=== PATIENT | female | born 1990 | race African-American/Black ===

== ENCOUNTER 2024-01-24 13:59 | Emergency (ER) | payer BC, MEDICAID ==
[~2024-01-24] VITALS: Ht 172.7 cm; Wt 95.0 kg
[2024-01-24 14:07] VITALS: O2SAT 100
[2024-01-24 15:13] LABS: BASOPHILS % 0.2 % (0.0-2.0); DIFFERENTIAL COMMENT 0; EOSINOPHILS % 0.3 % (0.0-5.0); HEMATOCRIT. 35.6 % (36.0-48.0); HEMOGLOBIN. 11.4 g/dL (12.0-16.0); LYMPHOCYTES % 14.8 % (20.0-50.0); MEAN CORPUSCULAR HEMOGLOBIN 24.6 pg (28.0-32.0); MEAN CORPUSCULAR VOLUME 76.8 fL (81.0-99.0); MEAN PLATELET VOLUME 10.2 fl (7.4-10.4); MONOCYTES % 4.7 % (2.0-8.0); PLATELET 270 x1000/uL (130-400); RED BLOOD CELL COUNT 4.64 mill/uL (4.2-5.4); RED CELL DISTRIBUTION WIDTH 14.9 % (11.6-14.6); WHITE BLOOD COUNT 9.4 x1000/uL (4.5-11.0)
[2024-01-24 15:25] LABS: PROTHROMBIN TIME 10.7 sec (9.6-11.0)
[2024-01-24 15:42] LABS: CHLORIDE 101 mEq/L (98-107); POTASSIUM 3.6 mEq/L (3.5-5.1); SODIUM 135 mEq/L (136-145)
[2024-01-24 15:43] LABS: CALCIUM 9.3 mg/dL (8.7-10.4); CARBON DIOXIDE 25 mEq/L (21-32)
[2024-01-24] MEDS: DIPHENHYDRAMINE 50MG/ML VIAL IV ONE (15:43)
[2024-01-24] MEDS: METOCLOPRAMIDE HCL 10MG/2ML VIAL IV STA (15:43)
[2024-01-24] MEDS: SODIUM CHLORIDE 0.9% 1,000 ML IV ONE (15:44)
[2024-01-24 15:48] LABS: CREATININE 0.7 mg/dL (0.6-1.0); GLUCOSE 94 mg/dL (70-105); UREA NITROGEN BLOOD 6 mg/dL (9-23)
[2024-01-24 15:49] LABS: HCG SCREEN POSITIVE
[2024-01-24] MEDS ORDERED: DOXY1TAB3 MT (15:58)
[2024-01-24 17:10] VITALS: BP 117/63; PULSE 68; RESP 16; TEMP 98.5
== END 2024-01-24 17:12 | disposition home or self-care (01) ==
LOC: ER 15:00
DX: O26.891 Other specified pregnancy related conditions, first trimester (principal); R11.2 Nausea with vomiting, unspecified; Z3A.13 13 weeks gestation of pregnancy
CPT/HCPCS: 99284; 96374; 96361; 96375; 80048; 84703; 83690; 85025; 85610; 36415; J1200; J2765; J7030

== ENCOUNTER 2024-07-05 11:25 | Emergency (ER) | payer BC, OTHER ==
[~2024-07-05] VITALS: Ht 172.7 cm; Wt 90.7 kg
[~2024-07-05 11:25] MED LIST: DOXY1TAB3 MT
[2024-07-05 11:28] VITALS: BP 113/71; PULSE 98; RESP 16; TEMP 98.2; O2SAT 100
[2024-07-05] MEDS: TETRACAINE 0.5% OPHTH DROPS 4ML BOTHEYE ONE (13:38)
[2024-07-05] MEDS: FLUORESCEIN SODIUM 1MG/STRIP BOTHEYE ONE (13:38)
[2024-07-05] MEDS ORDERED: ERYT1OIN6 EACHEYE (15:08)
== END 2024-07-05 15:30 | disposition home or self-care (01) ==
LOC: ER 11:25
DX: H10.31 Unspecified acute conjunctivitis, right eye (principal); F12.10 Cannabis abuse, uncomplicated
CPT/HCPCS: 99283

== ENCOUNTER 2024-10-14 05:41 | Emergency (ER) | payer MEDICAID, OTHER ==
[~2024-10-14] VITALS: Ht 172.7 cm; Wt 77.0 kg
[~2024-10-14 05:41] MED LIST changes: +ERYT1OIN6 EACHEYE
[2024-10-14 05:43] VITALS: TEMP 36.7; O2SAT 100
[2024-10-14] MEDS: ACETAMINOPHEN 325MG TABLET PO ONE (06:39)
[2024-10-14] MEDS: ONDANSETRON HCL 4MG/2ML INJ IV STA (06:40)
[2024-10-14] MEDS: MAGNESIUM/ALUMINUM HYDROXIDE/SIMETHICONE 30ML UDC PO STA (06:40)
[2024-10-14] MEDS: SODIUM CHLORIDE 0.9% 1,000 ML IV ONE (06:40)
[2024-10-14] MEDS: VISCOUS LIDOCAINE 2% 15 ML UDC PO STA (07:15)
[2024-10-14 07:44] LABS: CHLORIDE 106 mEq/L (98-107); POTASSIUM 3.3 mEq/L (3.5-5.1); SODIUM 140 mEq/L (136-145)
[2024-10-14 07:45] LABS: CALCIUM 9.5 mg/dL (8.7-10.4); CARBON DIOXIDE 26 mEq/L (21-32)
[2024-10-14 07:50] LABS: CREATININE 0.8 mg/dL (0.6-1.0); GLUCOSE 100 mg/dL (70-105); UREA NITROGEN BLOOD 10 mg/dL (9-23)
[2024-10-14 07:52] LABS: ALANINE AMINOTRANSFERASE 11 IU/L (10-49); ALBUMIN 4.7 g/dL (3.2-4.8); ASPARTATE AMINOTRANSFERASE 15 IU/L (<34); BILIRUBIN DIRECT 0.1 mg/dL (<=3.0); BILIRUBIN TOTAL 0.5 mg/dL (0.1-1.0); PROTEIN TOTAL 7.7 g/dL (6.0-8.3)
[2024-10-14 07:56] LABS: BASOPHILS % 0.4 % (0.0-2.0); DIFFERENTIAL COMMENT 0; HEMATOCRIT. 37.6 % (36.0-48.0); LYMPHOCYTES % 28.4 % (20.0-50.0); MEAN CORPUSCULAR HEMOGLOBIN 23.7 pg (28.0-32.0); MEAN CORPUSCULAR HGB CONC 31.9 g/dL (31.0-37.0); MEAN CORPUSCULAR VOLUME 74.3 fL (81.0-99.0); MEAN PLATELET VOLUME 10.5 fl (7.4-10.4); MONOCYTES % 5.9 % (2.0-8.0); NEUTROPHILS % 63.3 % (40.0-76.0); PLATELET 225 x1000/uL (130-400); RED BLOOD CELL COUNT 5.07 mill/uL (4.2-5.4); RED CELL DISTRIBUTION WIDTH 15.4 % (11.6-14.6)
[2024-10-14 08:04] LABS: CLARITY URINE CLEAR (CLEAR); COLOR URINE YELLOW (YELLOW); GLUCOSE URINE NEGATIVE (NEGATIVE); KETONES URINE NEGATIVE (NEGATIVE); NITRITE URINE NEGATIVE (NEGATIVE); OCCULT BLOOD URINE NEGATIVE (NEGATIVE); PH URINE 6.5 (4.5-8.0); PROTEIN URINE NEGATIVE (NEGATIVE); SPECIFIC GRAVITY URINE <=1.005 (1.005-1.030)
[2024-10-14 08:05] LABS: LEUKOCYTE ESTERASE URINE NEGATIVE (NEGATIVE); UROBILINOGEN URINE 0.2 E.U./dL (0.2-1.0)
[2024-10-14] MEDS: POTASSIUM CHLORIDE 20MEQ/PACKET PO ONE (09:18)
[2024-10-14 12:11] LABS: INFLUENZA TYPE A Presumptive Negative (Pres. Neg.)
[2024-10-14 12:12] LABS: INFLUENZA TYPE B Presumptive Negative (Pres. Neg.); RESPIRATORY SYNCYTIAL VIRUS Not Detected (Not Detectd)
[2024-10-14] MEDS ORDERED: ONDANSETRON HCL 4MG/2ML INJ IV PRN (14:15)
[2024-10-14] MEDS ORDERED: MAGNESIUM/ALUMINUM HYDROXIDE/SIMETHICONE 30ML UDC PO PRN (14:15)
[2024-10-14] MEDS ORDERED: MORPHINE SULFATE 2 MG/ML INJ (NOT FOR IM USE) IV PRN (14:15)
[2024-10-14] MEDS ORDERED: CLONIDINE 0.1MG TABLET PO PRN (14:15)
[2024-10-14] MEDS ORDERED: ACETAMINOPHEN 325MG TABLET PO PRN (14:15)
[2024-10-14 14:44] LABS: HCG SCREEN NEGATIVE
[2024-10-14] MEDS ORDERED: SODIUM CHLORIDE 0.9% 1,000 ML IV SCH (15:00)
[2024-10-14] MEDS ORDERED: NALOXONE HCL 0.4MG/ML VIAL IV PRN (15:00)
[2024-10-14] MEDS ORDERED: PANTOPRAZOLE SODIUM 40 MG/VIAL IV SCH (15:00)
[2024-10-14] MEDS ORDERED: IOHEXOL-300 100 ML BOTTLE ONE (15:05)
[2024-10-14 15:17] VITALS: BP 129/69; PULSE 59; RESP 12; O2SAT 100
[2024-10-14] MEDS ORDERED: ZOLPIDEM TARTRATE 5MG TABLET PO PRN (21:00)
[2024-10-15 11:29] LABS: *AMPHETAMINES SCREEN URINE NEGATIVE (NEGATIVE)
[2024-10-15 11:30] LABS: *BARBITURATES SCREEN URINE NEGATIVE (NEGATIVE); *BENZODIAZEPINES SCREEN URINE NEGATIVE (NEGATIVE); *COCAINE SCREEN URINE NEGATIVE (NEGATIVE)
[2024-10-15 11:31] LABS: CANNABINOID URINE SCREEN NEGATIVE (NEGATIVE); ECSTASY MDMA SCREEN URINE NEGATIVE (NEGATIVE); METHADONE URINE SCREEN NEGATIVE (NEGATIVE); OPIATES URINE SCREEN NEGATIVE (NEGATIVE); PHENCYCLIDINE URINE SCREEN NEGATIVE (NEGATIVE)
== END 2024-10-14 15:39 | disposition short-term general hospital (02) ==
LOC: ER 05:41
DX: R10.13 Epigastric pain (principal); R53.81 Other malaise; F12.90 Cannabis use, unspecified, uncomplicated; Z79.899 Other long term (current) drug therapy; Z20.822 Contact with and (suspected) exposure to COVID-19
CPT/HCPCS: 99285; 74177; 96374; 87426; 80076; 80305; 80048; 81025; 84703; 83690; 85025; 87420; 87804 ×2; 36415; 81003; Q9967; J2405; J2470; J7030